=== PATIENT | female | born 1965 | race Caucasian/White ===

== ENCOUNTER 2018-08-17 12:57 | Day surgery (SDC) | payer BC ==
[~2018-08-17 12:57] MED LIST: ACETAMINOPHEN 1,000 MG/100 ML BTL IV ONE; CEFAZOLIN 2 Gram 2 GM/50 ML BAG IVPB ONE; FAMOTIDINE 20MG TABLET PO ONE; MECLIZINE 25 MG TABLET PO ONE; METOCLOPRAMIDE 10 MG TABLET PO ONE
[2018-08-17] MEDS ORDERED: DESFLURANE 240 ML BTL INH ONE (12:58)
[2018-08-17] MEDS ORDERED: GLYCOPYRROLATE 0.2 MG/ML ML IV ONE (12:58)
[2018-08-17] MEDS ORDERED: FENTANYL PF 100MCG/2ML VIAL IV ONE (12:58)
[2018-08-17] MEDS ORDERED: MIDAZOLAM HCL 2MG/2ML VIAL IV ONE (12:58)
[2018-08-17] MEDS ORDERED: LIDOCAINE 2% MDV (20MG/ML) 20ML VIAL IV ONE (12:58)
[2018-08-17] MEDS ORDERED: PROPOFOL 10 MG/ML VIAL IV ONE (12:58)
[2018-08-17] MEDS ORDERED: HYDROMORPHONE HCL 2 MG/ML VIAL IV ONE (12:58)
[2018-08-17] MEDS ORDERED: ROCURONIUM BROMIDE 50MG/5ML VIAL IV ONE (12:58)
[2018-08-17] MEDS ORDERED: KETOROLAC 30 MG/ML VIAL IVP ONE (12:58)
[2018-08-17] MEDS ORDERED: DEXAMETHASONE 4 MG/ML 1ML VIAL IVP ONE (12:58)
[2018-08-17] MEDS ORDERED: NEOSTIGMINE 1 MG/1 ML,10ML VIAL IV ONE (12:58)
[2018-08-17] MEDS ORDERED: ONDANSETRON HCL IV 4 MG/2 ML VIAL IVP ONE (12:58)
[2018-08-17] MEDS ORDERED: EPINEPHRINE 1 MG/ML AMPUL SQ ONE ×2 (15:25)
[2018-08-17] MEDS ORDERED: BUPIVACAINE 0.5% W/EPI MPF 30 ML VIAL SQ ONE (15:26)
[2018-08-17] MEDS ORDERED: BUPIVACAINE LIPOSOME 266MG/20ML VIAL SQ ONE (15:26)
[2018-08-17] MEDS ORDERED: METHYLPREDNISOLONE 40MG/VIAL IU ONE (15:28)
[2018-08-17] MEDS ORDERED: RINGERS SOLUTION,LACTATED 50 ML IV ONE (16:03)
[2018-08-17] MEDS ORDERED: HYDROCODONE/APAP 7.5/325MG TABLET PO ONE (16:38)
--- NOTE | 2018-08-25 13:40 | Operative Note ---
DATE OF SURGERY: 08/17/2018 PREOPERATIVE DIAGNOSES: 1. Impinged tendonitis. 2. Possible rotator cuff tear. 3. Glenohumeral arthrosis. POSTOPERATIVE DIAGNOSES: 1. Impinged tendonitis. 2. Possible rotator cuff tear. 3. Glenohumeral arthrosis. 4. Partial biceps tendon rupture. OPERATION: 1. Diagnostic arthroscopy. 2. Arthroscopic stents and debridement of articular cartilage, labrum, biceps. 3. Arthroscopic subacromial decompression and acromioplasty. 4. Arthroscopic excision of distal clavicle AC joint 1 cm. 5. Arthroscopic biceps tenotomy. SURGEON: Jeramy Shore MD ANESTHESIA: LMA. ANESTHESIA PROVIDER: Mirella eMjía CRNA COMPLICATIONS: None. BLOOD LOSS: None. OPERATIVE FINDINGS: Intact bursa, articular cartilage surface rotator cuff significant glenohumeral arthrosis grade 3 diffusely in the humeral head and glenoid and anteriorly inferiorly grade 4 in the glenoid small nickel-size area. AC joint arthrosis and biceps partial tear. INDICATION: This is a 53-year-old female who is well known to me. She is status post arthroscopic acromioplasty with excision of distal clavicle impingement surgery several years ago and did well initially afterwards but she developed more significant pain and dysfunction in her shoulder afterwards and she was to proceed with her arthroscopic surgery at this point. Failed nonoperative treatment. I explained the risks and benefits to her in detail of her diagnosis and procedure including but not limited to infection, nerve injury, vessel injury, persistent pain, numbness and tingling in shoulder, the fact that if she has arthrosis in the shoulder, this procedure will not cure that condition and it could require even further procedures. All her questions were answered. Rehab and course were outlined. She agreed to proceed. PROCEDURE: The patient brought to the OR. Placed on a beach chair position. Primed for surgery. Antibiotics were given prior to surgery. Anesthesia was induced. The right shoulder prepped and draped in sterile fashion. Prepped again with ChloraPrep after draped. Intraoperative timeout was performed. Next, glenohumeral joint, subacromial space, and the AC joint were injected with 0.5% Marcaine with epinephrine. Standard posterior arthroscopic portal was established 2 cm inferior, 1 cm at the posterolateral corner of acromion. Anterior portal established through the rotator interval. Diagnostic arthroscopy was performed. Biceps tendon was slightly frayed. Biceps anchor is frayed and the anterior superior labrum again frayed, partially torn. We immediately used a shaver and cutter and cut the biceps and released it for an extensive debridement in the anterior and superior labrum. Posterosuperior labrum again frayed, degenerated tear. Posteroinferior labrum normal. Glenohumeral articular cartilage had grade 3 diffusely and some focal areas of grade 4 chondromalacia. Again did extensive debridement and smoothing the chondromalacia in the glenoid and humeral head to a smooth stable surface as possible. Next, the undersurface of the rotator cuff inspected. Only some slight fraying. No significant partial- or full-thickness tears here. The biceps tendon posterior-inferior there. Superior and middle glenohumeral ligaments were intact. Subscap tendon, subscap recess were normal. Anterior and inferior labrum normal. Next, anterior and posterior subacromial portals were established. The tissue ablator was inserted in the anterior subacromial portal and subacromial bursectomy was performed outlining the anterolateral acromion. We released the coracoacromial ligament completely, opened up the inferior AC joint capsule. Next, we established the lateral portal off the posterior margin of the AC joint. Made a small stab incision there, inserted the shaver and debrided back all the subacromial subdeltoid bursa. Next, we inserted the devi in the lateral portal and lightly performed acromioplasty sweeping out strips of bone, working from lateral to medial, anterior, posterior and converting the type 2 acromion to a planar surface. Using a rasp to smooth subacromial surface we verified it was flat with a probe from the posterior portal. Next, the dvei was inserted in the anterior portal and burred down the medial acromial facet, resected the distal cuff 1 cm. Made a small stable incision superiorly to the AC joint and inserted the shaver there and smoothed both bony surfaces. Verified the AC joint to be free of any bony impingement or bony fragments. Next, inspected the bursa rotator cuff. There was some slight fraying, otherwise intact. There were no significant partial- or full-thickness tears here. Next, inserted the scope back intraarticularly. Inserted the spinal needle there so I could bolus the joint line with 0.5% Marcaine with epinephrine, Exparel, and 80 mg of Depo-Medrol mixture. Inserted that. Then removed the scope and injected some of the joint with that and then we also injected around the periphery of the open incisions with that mixture as well. This completed the procedure. The scope incision covered with Xeroform gauze. Sterile dressing applied and UltraSling. The patient tolerated procedure well. No intraoperative complications. Sponge, needle, blade counts correct. Recovery Room stable. Neuro is intact. She will be discharged as an outpatient and will follow up in 2 weeks. CC: Dr. Gege HARDWICK
== END 2018-08-17 17:01 | disposition home or self-care (01) ==
LOC: SUR 12:57
PROVIDERS: ATTEND Orthopaedic Surgery
DX: S46.211A Strain of muscle, fascia and tendon of other parts of biceps, right arm, initial encounter (principal); M19.011 Primary osteoarthritis, right shoulder; F17.210 Nicotine dependence, cigarettes, uncomplicated
CPT/HCPCS: 36416; 82948; J0171; J1030; J1885; J2405; J2710; J7120